=== PATIENT | female | born 1935 | race Caucasian/White ===

== ENCOUNTER 2016-09-24 15:55 | Inpatient (IN) ==
[2016-09-24 16:27] LABS: URINE MICRO REVIEW NEEDED? NO; URINE SOURCE CLEAN CATCH
[2016-09-24 16:34] LABS: BILIRUBIN URINE NEGATIVE (NEGATIVE); BLOOD URINE NEGATIVE (NEGATIVE); COLOR STRAW; GLUCOSE URINE NEGATIVE (NEGATIVE); LEUKOCYTES URINE MODERATE (NEGATIVE); NITRITE URINE NEGATIVE (NEGATIVE); PH URINE 6.5; PROTEIN URINE NEGATIVE (NEGATIVE); SP GRAVITY URINE 1.002; TURBIDITY URINE CLEAR (CLEAR); UROBILINOGEN URINE NORMAL (NORMAL)
[2016-09-24 16:34] LABS: HEMOGLOBIN 14.3 g/dL (12.0-16.0); MANUAL DIFF NEEDED? NO
[2016-09-24 16:36] LABS: UR EPITHELIAL CELLS <10 /HPF (<10); URINE BACTERIA NEGATIVE /HPF; URINE CULTURE NEEDED? YES; URINE RBC <10 /HPF (<10)
[2016-09-24 17:01] LABS: AGAP 15; ALBUMIN 4.4 g/dL (3.5-5.0); ALKALINE PHOSPHATASE 142 U/L (32-104); AMYLASE 59 U/L (20-200); BUN 19 mg/dL (8-22); CALCIUM 9.9 mg/dL (8.8-10.2); CHLORIDE 95 mmol/L (98-107); COSMO 277; GOT 56 U/L (10-30); GPT 29 U/L (10-36); LIPASE 55 U/L (13-60); POTASSIUM 3.7 mmol/L (3.5-5.1); SODIUM 137 mmol/L (136-145); TCO2 27 mmol/L (25-35); TOTAL PROTEIN 8.2 g/dL (6.3-8.3)
--- NOTE | 2016-09-24 17:04 | EKG Report ---
Test Performed on : 09/24/2016 4:12:00 PM Test Reason : ABDOMINA PIAN Blood Pressure : / mmHG Vent. Rate : 057 BPM Atrial Rate : 057 BPM P-R Int : 146 ms QRS Dur : 102 ms QT Int : 450 ms P-R-T Axes : 029 -11 076 degrees QTc Int : 438 ms Sinus bradycardia. Left ventricular hypertrophy with repolarization abnormality Anterior infarct (cited on or before 06-OCT-2015) Abnormal ECG When compared with ECG of 06-OCT-2015 03:16, fusion complexes are no longer present premature ventricular complexes. are no longer present Borderline criteria for Inferior infarct are no longer present Non-specific change in ST segment in Lateral leads T wave inversion less evident in Lateral leads Unconfirmed Result
[2016-09-24 17:48] LABS: BASO% 0.5 % (0.0-0.8); EOS% 1.8 % (0.0-10.0); HEMATOCRIT 43.9 % (37.0-47.0); IMM GRAN# 0.02 X1000 (0.0-0.04); IMM GRAN% 0.2 % (0.0-0.5); LYMPH# 2.59 X1000 (1.2-3.4); LYMPH% 23.4 % (20.5-51.1); MCH 29.3 PG (27-31); MCHC 32.6 g/dL (33-37); MONO# 0.77 X1000 (0.11-0.59); MONO% 6.9 % (1.7-9.3); MPV 11.9 FL (7.4-10.4); NEUT% 67.2 % (42.2-75.2); PLT 221 X1000 (130-400); RBC 4.88 XMIL (4.2-5.4)
--- NOTE | 2016-09-24 17:54 | ED EKG INTERP ---
This chart was entered by Batsheva Brower Scribrolf, acting as scribe for Lisa Darling MD. EKG Interpretation - EKG Time of EKG reading by physician:: 16:12 EKG Read and Signed by:: Lisa Darling EKG Interpretation (*Must complete 3 of following elements*): Abnormal (LVH with repolarization abnormality. anterior infarct, age undetermined.) Rate: 57 Rhythm: sinus bradycardia QRS: LVH (with repolarization abnormality) This chart was documented by the indicated scribe, (Batsheva Brower Scribe) and accurately reflects the services I performed and decisions made by me, Lisa Darling MD, as attested by the provider's signature.
[2016-09-24] MEDS ORDERED: NS 1,000 ML IV ONE (18:01)
--- NOTE | 2016-09-24 18:45 | PROVIDER DOCUMENTATION ---
This chart was entered by Batsheva Brower Scribe, acting as scribe for Dino Edmonds MD. HPI-Abdominal Pain/GI Problem - General Chief Complaint: Epigastric Pain Stated Complaint: UPPER ABD PAIN Time Seen by Provider: 09/24/16 17:31 Source: patient Allergies/Adverse Reactions: Patient Allergies Allergy/AdvReac Type Severity Reaction Status Date / Time ether [Ether] Allergy Unknown Verified 09/24/16 17:52 sulfamethoxazole Allergy RASH Verified 09/24/16 17:52 [From Bactrim] trimethoprim [From Bactrim] Allergy RASH Verified 09/24/16 17:52 morphine AdvReac AMS Verified 09/24/16 17:52 Home Medications: Home Medication List Medication Instructions Recorded Confirmed Last Taken Type Atenolol [Tenormin] 50 mg PO DAILY 08/07/12 09/24/16 09/24/16 History LISINOpril [Prinivil] 20 mg PO QHS 08/07/12 10/06/15 10/05/15 14:30 History Lutein [Natural Lutein] 20 mg PO DAILY 09/11/13 10/06/15 10/05/15 14:30 History Vitamin E 400 unit PO DAILY 09/11/13 10/06/15 10/05/15 14:30 History Meloxicam 7.5 mg PO DAILY 10/02/14 10/06/15 10/05/15 14:30 History Multivitamin with Minerals 1 each PO DAILY 10/02/14 10/06/15 10/05/15 14:30 History [Multiple Vitamin] Cholecalciferol (Vit D3) [Vitamin 1,000 unit PO DAILY 10/04/15 10/06/15 14:30 History D] Lisinopril [Zestril] 20 mg PO QHS #30 tablet 10/04/15 09/24/16 09/24/16 Rx Magnesium Oxide [Magnesium] 400 mg PO DAILY 10/04/15 10/06/15 10/05/15 14:30 History Clonidine HCl 0.1 mg PO TID PRN #30 tablet 10/06/15 Unknown Rx - History of Present Illness-ABD Nature of Presenting Problems: 80 yo WF presents to ED with cc of epigastric pain that is comparable to previous episodes of gallstones. Pt had a cholecystectomy but states she still gets gallstones, which Dr. Hubbard removes. Upon arrival to ED, pt is not currently in pain and appears in no distress. Abdominal Pain Onset Location: reports: epigastric Severity in ED: reports: mild Onset/Duration: reports: other (Off and on greater than 1 month) Timing: reports: intermittent (Pt not currently in pain.) Associated Symptoms: reports: denies symptoms Review of Systems - Adult - REVIEW OF SYSTEMS - ADULT Constitutional: reports: no symptoms reported. denies: chills, fever Eyes: reports: no symptoms reported. denies: blurred vision, double vision Ears, Nose, Mouth & Throat: reports: no symptoms reported. denies: ear pain, sinus problem Cardiovascular: reports: no symptoms reported. denies: chest pain, palpitations Respiratory: reports: no symptoms reported. denies: cough, wheezing Gastrointestinal: reports: abdominal pain (intermittent, epigastric) Genitourinary: reports: no symptoms reported. denies: dysuria, hesitency Musculoskeletal: reports: no symptoms reported. denies: back pain, joint swelling Integumentary: reports: no symptoms reported. denies: hair loss, mole changes Neurological: reports: no symptoms reported. denies: numbness, paresthesia Psychiatric: reports: no symptoms reported. denies: anxiety, depression Endocrine: reports: no symptoms reported. denies: cold intolerance, heat intolerance Hematologic/Lymphatic: reports: no symptoms reported. denies: blood clots, low blood count Allergic/Immunologic: reports: no symptoms reported. denies: allergic reactions , eczema All Other Systems: Reviewed and Negative Past History - Adult - PAST MEDICAL HISTORY-ADULT Review of Records: reports: Old Records Reviewed, Nursing Assessment Review, Medications Reviewed Major Childhood Illnesses: reports: denies history Cardiovascular: reports: HTN, hyperlipidemia Respiratory: reports: sleep apnea Gastrointestinal: reports: cholelithiasis, other (diverticulitis) Musculoskeletal: reports: arthritis - PRIOR SURGERIES/PROCEDURES Surgical/Procedure History: reports: appendectomy, cholecystectomy (in may), hysterectomy, orthopedic (extremity) (shoulder), joint replacement (LTKA, bilateral LUPE), back/neck - IMMUNIZATION STATUS Childhood Immunizations: See Nurse Assessment Flu Vaccine: See Nurse Assessment Physical Exam-General - PHYSICAL EXAM-ADULT Initial Vital Signs Reviewed: Yes - CONSTITUTIONAL General Appearance: appears well, alert, no apparent distress - EYES Eyes: PERRL/EOMI, pink conjunctivae - HEAD, EARS, NOSE, MOUTH & THROAT HENMT: normocephalic/atraumatic, moist mucous membranes - NECK Neck: non-tender, full range of motion, supple - RESPIRATORY Respiratory: chest non-tender, lungs clear, normal breath sounds - CARDIOVASCULAR Cardiovascular: normal peripheral pulses, bradycardia - GASTROINTESTINAL (ABDOMEN) Abdominal Exam: normal bowel sounds, non tender, soft - LYMPHATIC Lymphatic: no adenopathy - MUSCULOSKELETAL Back Exam: normal inspection Extremity: normal range of motion, non-tender, normal gait - SKIN Integumentary: normal color, normal turgor - NEUROLOGIC Neurologic: grossly normal, no motor/sensory deficits - PSYCHIATRIC Psych/Mental Status: normal mood/affect, normal thought content, normal thought process, oriented x 3 Progress - PLAN OF CARE/RESULTS Progress/Plan/Lab Results: Vital Signs - 8 hr 09/24/16 16:00 Temperature 98.2 F Pulse Rate 57 L Respiratory Rate 20 Blood Pressure 207/70 O2 Sat by Pulse Oximetry 100 Laboratory Results - last 24 hr 09/24/16 09/24/16 09/24/16 16:05 16:08 16:10 WBC 11.09 H RBC 4.88 Hgb 14.3 Hct 43.9 MCV 90.0 MCH 29.3 MCHC 32.6 L RDW Std Deviation 13.2 Plt Count 221 MPV 11.9 H Immature Gran % (Auto) 0.2 Neut % (Auto) 67.2 Lymph % (Auto) 23.4 Davison % (Auto) 6.9 Eos % (Auto) 1.8 Baso % (Auto) 0.5 Immature Gran # (Auto) 0.02 Neut # (Auto) 7.46 H Lymph # (Auto) 2.59 Davison # (Auto) 0.77 H Eos # (Auto) 0.20 Baso # (Auto) 0.05 Sodium 137 Potassium 3.7 Chloride 95 L Carbon Dioxide 27 Anion Gap 15 BUN 19 Creatinine 0.8 Estimated GFR/1.73 m2 > 60 BUN/Creatinine Ratio 24 Glucose 115 H Calculated Osmolality 277 Calcium 9.9 Total Bilirubin 0.50 AST 56 H ALT 29 Alkaline Phosphatase 142 H Total Protein 8.2 Albumin 4.4 Globulin 3.8 Albumin/Globulin Ratio 1.2 Amylase 59 Lipase 55 Urine Source CLEAN CATCH Urine Color STRAW Urine Turbidity CLEAR Urine pH 6.5 Ur Specific Mayo 1.002 Urine Protein NEGATIVE Ur Glucose (Stick) NEGATIVE Ur Ketones (Stick) NEGATIVE Urine Blood NEGATIVE Urine Nitrite NEGATIVE Urine Bilirubin NEGATIVE Urobilinogen Dipstick NORMAL Urine Leukocytes MODERATE A Urine WBC (Auto) 10-20 A Urine RBC (Auto) <10 U Epithel Cells (Auto) <10 Urine Bacteria (Auto) NEGATIVE Orders Category Date Time Status Saline Loc DIRECTED Care 09/24/16 16:06 Active NPO Diet 09/24/16 16:06 Active AMYLASE [CHEM] Stat Lab 09/24/16 16:08 Completed CBC WITH ELECTRONIC DIFF [HEME] Stat Lab 09/24/16 16:05 Completed COMPREHENSIVE METABOLIC PANEL [CHEM] Stat Lab 09/24/16 16:08 Completed LIPASE [CHEM] Stat Lab 09/24/16 16:08 Completed URINALYSIS W/POSS RFLX CULT-1 [URINALYSIS] Stat Lab 09/24/16 16:10 Completed EKG [EKG] Stat Ther 09/24/16 16:07 Draft Result Diagrams: 09/24/16 16:05 09/24/16 16:08 - REASSESSMENT Reassessment #1 Time Reassessed: 18:44 Status: improving (asymptomatic now) Departure - Departure Time of Disposition Decision: 18:43 DIAGNOSIS: Gall stones, common bile duct Disposition: ADMITTED INPATIENT 09 Certified Medical Emergency: Emergent Condition: Stable Referrals and Follow-Ups: Juan Manuel Kincaid MD [Primary Care Provider] - - Critical Care Note This patient required my direct & personal management of CC.: No This chart was documented by the indicated scribe, (Batsheva Brower Scribrolf) and accurately reflects the services I performed and decisions made by me, Dino Edmonds MD, as attested by the provider's signature.
[2016-09-24] MEDS ORDERED: ZOFRAN IV PRN (19:00)
[2016-09-24] MEDS ORDERED: LABETALOL IV ONE (19:37)
--- NOTE | 2016-09-24 20:54 | HISTORY AND PHYSICAL ---
PRIMARY CARE PHYSICIAN: Juan Manuel Kincaid MD. SENIOR ECONOMIST: Jeffry Santacruz MD. PRESENTING COMPLAINT: Abdominal pain. HISTORY OF PRESENTING COMPLAINT: Ms. Chou is an 80-year-old, female with extensive history of hypertension, dyslipidemia, sleep apnea, GERD. The patient also has multiple stones in the CBD even after gallbladder has been taken out. She has had multiple ERCPs with stent placement and removal of stones. She referred that the last time an ERCP was done was March of last year. Since then she has been pretty stable. She gets every now and then abdominal pain but then she lies down and it goes away. However, this morning she said she experienced the worst pain of her life. It was intense in the midepigastrium radiating all the way to the right quadrant and also up in the chest. The patient refers that there was no vomiting, no diarrhea. She felt it is the same type of pain that she normally gets when her CBD is obstructed. Upon presentation to the emergency department patient was evaluated but by the time I saw her she was pain-free. PAST MEDICAL HISTORY: 1. Hypertension. 2. Dyslipidemia. 3. Sleep apnea. PAST SURGICAL HISTORY: 1. Bilateral hip replacement. 2. Total knee. 3. Cholecystectomy. SOCIAL HISTORY: Patient denies alcohol or illicit drugs. Lives alone. ALLERGIES: Bactrim and morphine. REVIEW OF SYSTEMS: A 14 point review of systems was discussed with the patient. Unremarkable except for what is noted in HPI. Specifically, patient denies any nausea or vomiting. No diarrhea. No shortness of breath. No fever. No chills. PHYSICAL EXAMINATION: VITAL SIGNS: Blood pressure is 192/62, pulse is 52, respirations 20, temperature 98.2 degrees. GENERAL: Ms. Chou is an 80-year-old female. She is in bed, not in any distress. HEENT: Mucosa is slightly dry. Anicteric. Acyanotic. NECK: Supple. HEAD: Normocephalic, atraumatic. NECK: Supple. No JVD. CHEST: Good air entry bilaterally. No crepitations. No rhonchi. CARDIOVASCULAR: Regular rate and rhythm. There are no murmurs, rubs, or gallops. ABDOMEN: Soft. It is completely unremarkable now. Bowel sounds are present. No hepatosplenomegaly. EXTREMITIES: No pedal edema. CENTRAL NERVOUS SYSTEM: Patient is alert, oriented x4. Executive functions are intact. She has a very good sense of humor. Follows commands. Power is 5/5 in all extremities. There is no sensory deficit. Cranial nerves 2-12 have been grossly examined and they are intact. LABORATORY DATA: WBC is 11.09, hemoglobin is 14.3, platelet count is 221,000. Chemistry: Sodium is 137, potassium is 3.7, chloride is 95, bicarbonate 27, glucose is 115. AST is 56, ALT is 26, alkaline phosphatase is 142. Urine shows moderate leukocytes, WBC is 10-20, but patient is completely asymptomatic. ASSESSMENT: Ms. Chou is an 80-year-old, female, with recurrent abdominal pain subsequent to common bile duct stones. 1. Abdominal pain likely secondary to stones in the CBD. The patient is now completely asymptomatic. We will do an ultrasound of the right upper quadrant and notify her GI physician for tomorrow. 2. Clinical dehydration. We will continue with gentle hydration for now. 3. Mild urine leukocyte. I think this is probably asymptomatic bacteriuria. Patient does not have any urinary tract infection symptoms. I will therefore not treat that. 4. Uncontrolled hypertension. We will restart the patient on her home blood pressure medications including lisinopril, clonidine and atenolol. We will withhold meloxicam which is a pain medication that patient is on which we know can affect blood pressure. 5. We will keep a very close eye on her liver function tests. If tomorrow GI reviews the patient and they do not think there is a need for any procedure and she is well-hydrated, then I think we can discharge her. cc: Tian Maier MD
[2016-09-24] MEDS: PRINIVIL PO SCH (21:46)
[2016-09-24] MEDS: NS 1,000 ML IV SCH (21:46)
[2016-09-25 05:06] LABS: MANUAL DIFF NEEDED? NO
[2016-09-25 05:21] LABS: BASO% 0.3 % (0.0-0.8); EOS# 0.24 X1000 (0.0-0.7); EOS% 2.7 % (0.0-10.0); HEMATOCRIT 36.6 % (37.0-47.0); HEMOGLOBIN 11.9 g/dL (12.0-16.0); LYMPH% 33.9 % (20.5-51.1); MCHC 32.5 g/dL (33-37); MCV 89.3 FL (81-99); MONO# 0.69 X1000 (0.11-0.59); MONO% 7.8 % (1.7-9.3); MPV 11.2 FL (7.4-10.4); NEUT% 55.3 % (42.2-75.2); PLT 168 X1000 (130-400)
[2016-09-25 05:29] LABS: AGAP 13; ALBUMIN 3.6 g/dL (3.5-5.0); ALKALINE PHOSPHATASE 111 U/L (32-104); BUN 14 mg/dL (8-22); CALCIUM 8.7 mg/dL (8.8-10.2); CHLORIDE 104 mmol/L (98-107); COSMO 285; GOT 28 U/L (10-30); GPT 20 U/L (10-36); MAGNESIUM 1.7 mg/dL (1.5-2.7); POTASSIUM 3.4 mmol/L (3.5-5.1); SODIUM 143 mmol/L (136-145); TCO2 26 mmol/L (25-35); TOTAL BILIRUBIN 0.39 mg/dL (0.20-1.00); TOTAL PROTEIN 6.5 g/dL (6.3-8.3)
[2016-09-25 05:36] LABS: INR 1.01; PROTIME 10.6 Seconds (9.2-11.7)
[2016-09-25] MEDS: NS 1,000 ML IV SCH (06:16)
--- NOTE | 2016-09-25 10:17 | Diag Imaging Result Doc PS360 ---
US ABDOMEN-COMPLETE - 09/25/2016 INDICATION: no GB, but has recurrent stones COMPARISON: CT abdomen pelvis 01/29/2015 FINDINGS: The gallbladder is surgically absent. The common bile duct is normal measuring 6 mm. No biliary dilation. The liver, pancreas, spleen, and right kidney are normal. There is a left renal cyst measuring 1.2 cm. Aorta, IVC, and main portal vein are patent. Spleen size is about 10 cm. IMPRESSION: No acute disease. Electronically signed by Isaias Cunningham 09/25/2016 10:14 AM
[2016-09-25] MEDS: TENORMIN PO SCH (10:58)
[2016-09-25] MEDS ORDERED: LIBRAX PO PRN (12:19)
--- NOTE | 2016-09-25 13:19 | CONSULTATION ---
DATE OF CONSULTATION: 09/25/2016 REASON FOR REFERRAL: Abdominal pain, history of common bile duct stones. HISTORY OF PRESENT ILLNESS: This is an 80-year-old, white female, who reports onset of symptoms yesterday. She describes abdominal pain as "attacks". She reports abdominal pain that usually improves after lying down but, yesterday, it did not improve and she reported to the emergency room. Her daughter was actually in our office yesterday for an appointment and had told us that her mother had been having some episodes of abdominal pain similar to the episodes she has had when she had common bile duct stones. She has had several ERCPs in 2014 for stone removals and stent placements. The last procedure was done in 03/2015 where she had a stone removed and her stent removed. The patient states since 06/2016 she has had episodes of abdominal pain off and on. Usually her symptoms improve after lying down for about 5 or 10 minutes. Yesterday, she states that the attack was the worst one she has had and her symptoms did not improve, so she reported to the emergency room. Today, she denies abdominal pain, and her symptoms have resolved. No reported nausea or vomiting with this episode of pain. Her daughter states she has complained of nausea with episodes of vomiting in the past. She denies constipation or diarrhea. She does report some belching but denies reflux or heartburn. On evaluation, her AST was slightly elevated at 56; today, it is 28. Her alkaline phosphatase on admission was 142; today, it is 111. She had an abdominal ultrasound with no evidence of common bile duct stone. No biliary dilation noted. PAST MEDICAL HISTORY: Hypertension, dyslipidemia, sleep apnea, GERD. PAST SURGICAL HISTORY: Bilateral hip replacement, total knee replacement, cholecystectomy, history of ERCP with stone extractions and stent placements with last procedure being in 03/2015 with stone removed and stent removed. SOCIAL HISTORY: She denies alcohol use or tobacco use. She lives alone. ALLERGIES: Bactrim causing a rash. Morphine causing altered mental status, and ether causing an unknown reaction. HOME MEDICATIONS: 1. Vitamin E 400 units daily. 2. Multivitamin daily. 3. Meloxicam 7.5 mg daily. 4. Magnesium 400 mg daily. 5. Lutein 20 mg daily. 6. Zestril 20 mg every night. 7. Prinivil 20 mg every night. 8. Clonidine 0.1 mg 3 times a day as needed. 9. Vitamin D 1000 units daily. 10. Tenormin 50 mg daily. REVIEW OF SYSTEMS: Per HPI. PHYSICAL EXAMINATION: Vital Signs: Temperature 98.6 degrees, pulse 62, respirations 16, blood pressure 186/70. Generally, the patient is awake, alert, no acute distress. HEENT: Normocephalic, atraumatic. Pupils equal, round, reactive to light. Sclerae nonicteric. Cardiovascular: Regular rate and rhythm. Respiratory: Lung sounds clear bilaterally. Abdomen is soft, nontender. Positive bowel sounds. Extremities: No lower extremity edema noted. Neurological: Cranial nerves 2-12 grossly intact. Patient is awake, alert, oriented to person, place, and time. DIAGNOSTIC RESULTS: Laboratory: Hematology: White count 8.85, hemoglobin 11.9 , hematocrit 36.6, MCV 89.3. Chemistry: Sodium 143, potassium 3.4, chloride 104, CO2 of 26. BUN 14, creatinine 0.8, total bilirubin 0.39, AST 28, ALT 20, alkaline phosphatase 111. Amylase 59 , lipase 55. Abdominal ultrasound showing no evidence of acute disease. Common bile duct was normal measuring 6 mm with no biliary dilation noted. No reported common bile duct stones noted. ASSESSMENT AND PLAN: 1. Abdominal pain, now resolved. 2. Mildly elevated LFTs. 3. Hypertension. PLAN: We will continue supportive care and symptomatic treatment. Use Librax as needed for abdominal pain. We will empirically start Cipro 250 mg twice a day for 5 days. Case discussed with Dr. Santacruz. He does not recommend an ERCP at this time since her symptoms have resolved. We will repeat LFTs in the morning. Continue to follow, and we will see her in the office once discharged. I have discussed this case with Dr. Santacruz. He is telephone station repairer over the weekend and will be available as needed. Thank you for this consultation. Dictated by XIAO Gutierrez for Jeffry Santacruz MD cc: XIAO Witt MD [facility]
[2016-09-25] MEDS: CIPRO PO SCH ×2 (14:07→21:46)
--- NOTE | 2016-09-25 15:21 | PROGRESS NOTE ---
DATE: 09/25/2016 Ms. Chou presented on 09/24/2016. She is an 80-year-old female with extensive history of hypertension, dyslipidemia, sleep apnea, gastroesophageal reflux disease. She had multiple stones in the common bile duct and I think she told me she has had 3 different times after her gallbladder was taken. Following her cholecystectomy she has had 3 stones removed, ERCPs. Dr. Santacruz has followed her but she has more abdominal pain and presented to the hospital. On exam today, epigastric pain is less but she complains of some pain that starts around the epigastric area and migrates outward. She had mild elevation of LFTs. They are using some Librax as needed for abdominal pain. Abdominal ultrasound done on 09/25/2016, no acute disease. ASSESSMENT AND PLAN: 1. Abdominal pain likely secondary stones common bile duct. Patient on admission was completely asymptomatic but has had some more bouts of discomfort, right upper quadrant, epigastric. 2. Clinical dehydration. Hydrate with IV fluids. 3. Mild urine leukocytes so treating with an asymptomatic bacteriuria. Does not have any real urinary tract infection symptoms. 4. Uncontrolled hypertension. Blood pressures continue to monitor. So we will see. Continue present orders. cc: Liang Pinzon MD
[2016-09-25] MEDS: DILAUDID IV PRN (17:07)
[2016-09-25] MEDS: LABETALOL IV PRN (19:45)
[2016-09-25] MEDS: PRINIVIL PO SCH (21:46)
[2016-09-26] MEDS: NS 1,000 ML IV SCH (01:25)
[2016-09-26] MEDS: DILAUDID IV PRN (01:26)
[2016-09-26 06:45] LABS: ALBUMIN 3.3 g/dL (3.5-5.0); ALKALINE PHOSPHATASE 100 U/L (32-104); DIRECT BILIRUBIN < 0.20 mg/dL (0.00-0.20); GOT 23 U/L (10-30); GPT 16 U/L (10-36); TOTAL PROTEIN 5.7 g/dL (6.3-8.3)
[2016-09-26] MEDS: CIPRO PO SCH ×2 (10:33→21:01)
[2016-09-26] MEDS: TENORMIN PO SCH (10:33)
[2016-09-26] MEDS: LABETALOL IV PRN ×2 (13:12→23:44)
--- NOTE | 2016-09-26 14:49 | CONSULTATION ---
DATE OF CONSULTATION: 09/26/2016 INDICATION: Hypertension. HISTORY OF PRESENT ILLNESS: Ms. Chou is an 80-year-old, white female with a history of hypertension, dyslipidemia and sleep apnea. In addition, she has reflux disease and a history of multiple stones in the common bile duct even after cholecystectomy has been performed. She has had multiple ERCPs with stent placements and removal of stones performed. She presented for a similar abdominal pain that she had with biliary stones. This has since resolved since she has presented. She has not had any vomiting. No diarrhea. She has not had any exertional chest pain. She also reports that recently her blood pressure has been much more elevated. It is unclear as to when this onset of symptoms started. She had a titration of her medications by her primary care physician in June but she never followed up regarding this and it does not sound like she has been checking it at home fairly regularly. In this hospitalization she has had significant elevations with adjustment of medications by the primary team. PAST MEDICAL HISTORY: 1. Hypertension. 2. Dyslipidemia. 3. Sleep apnea. 4. History of biliary stones. SOCIAL HISTORY: No alcohol or illicit drugs. FAMILY HISTORY: Significant for hypertension. REVIEW OF SYSTEMS: A 10 system review of systems is negative except for those things mentioned in HPI. PHYSICAL EXAMINATION: She is afebrile. Heart rate is in the 50s to 60s. Her blood pressures have been quite elevated during this hospitalization ranging anywhere from the 160s to 210s systolic. Repetition of her blood pressure checked by myself in both upper extremities show systolics in the 180s to 200s bilaterally.General: She is in no acute distress. She has no pain issues presently. HEENT: Oropharynx is moist. Poor dentition. Eye examination shows pink conjunctivae, white sclerae. Neck: Examination shows no obvious thyromegaly or thyroid tenderness. Cardiovascular: She is in a regular rate and rhythm. She has no murmurs. She has no S3. She has no lower extremity edema. Chest: Clear bilaterally. She has no increased work of breathing. Abdomen: Soft. There is minimal diffuse tenderness to palpation with no rebound or guarding. Good bowel sounds. Skin Exam: Warm and dry throughout without any rashes. Neurological: Moving all extremities well. Cranial nerves 2-12 are intact without any sensation deficits. Psychiatric: Alert, oriented, pleasant. She has normal mood and affect. PERTINENT DATA: She had abdominal ultrasound that shows no evidence of any acute disease. Common bile duct was normal. She had an electrocardiogram on the demonstrating sinus rhythm. She has really no evidence of any significant ischemic changes. No signs of infarct. Her laboratory data shows white count 8.8 yesterday, hematocrit 36.6, platelet count is 168,000. Sodium is 143, potassium 3.4. Her BUN is 14, creatinine 0.8. Cardiac enzymes negative. Albumin 3.3. ASSESSMENT: Refractory hypertension. PLAN: We will check a duplex renal artery Doppler. Medication adjustments have been already made by the primary team including the addition of a diuretic which will start tomorrow as well as amlodipine 5 mg b.i.d. which will start tonight. She is on lisinopril 20 mg at bedtime as well as atenolol 50 mg daily. We will follow up on the duplex renal artery Doppler. Further recommendations to follow. cc: Macho Zamora MD
--- NOTE | 2016-09-26 16:26 | PROGRESS NOTE ---
DATE: 09/26/2016 Today Ms. Chou refers to be doing a whole lot better. Abdominal pain is completely gone. She denies any nausea. No chest pain. No diarrhea. OBJECTIVE: Vital signs: Blood pressure is 187/72, pulse of 60, respirations 17 , temperature is 98 degrees. General: Ms. Chou is an 80-year-old female. She is in bed. HEENT: Mucosa is slightly dry. Anicteric. Acyanotic. Neck: Supple. Chest: Good air entry bilaterally. No crepitations. No rhonchi. Cardiovascular: Regular rate and rhythm. Abdomen: Soft. Extremities: No pedal edema. CAREER SERVICES ASSISTANT: Patient is alert and oriented. There is no focal neurological deficit. LABORATORY DATA: Liver function tests, total bilirubin 0.4. AST is 23, ALT is 16, alkaline phosphatase is 100. ASSESSMENT: 1. Abdominal pain. Suspected to be due to stones in the CBD. This has completely resolved. Patient has been evaluated by Dr. Santacruz and he does not think there is any need for any GI intervention at this point. 2. Clinical dehydration. This has also improved. Patient has been on IV fluids. Has been advised to adequately hydrate herself. 3. Uncontrolled hypertension. Blood pressure on presentation was 207/70. This has progressively coming down and this morning is 187/72. Of note, patient has no signs and symptoms of end organ damage. There are not any heart problems at this point. Patient is not encephalopathic. Does not have any renal disease and there is not any indication of vascular acute disease due to the elevated blood pressure. I think the blood pressure needs to be better controlled and she does not necessarily need to be in hospital for this to be done. I have added amlodipine and chlorthalidone to her ROSEMARY inhibitor and beta vi for better blood pressure control which I think needs to be done very slowly because of her age so that we do not drop the cerebral perfusion which in turn can actually have worst consequences than the cure. I did try to explain this to the daughter but she was very adamant that she wants her mother's blood pressure better well controlled in the hospital before she would take her home. There was a point that she said she would jennifer me if her mother goes home and gets stroke because of elevated blood pressure. I did mention to her I cannot guess what is going to happen the next day or the next second but I know for sure there is no any indication to drop her blood pressure to normal level while she is in hospital acutely since the consequence is detrimental. 4. History of sleep apnea. Noted. 5. Multiple CBD interventions with ERCPs noted. So in general I think from a medical standpoint, Ms. Chou is stable to be discharged. She does have elevated blood pressure which I think needs to be better controlled, not necessarily in the hospital setting. We will consult Cardiology upon the request of the daughter to evaluate the patient. As I said, I have already added amlodipine and chlorthalidone to her home medications and we will be waiting on final recommendations from Cardiology to discharge her. cc: Tian Maier MD MTDLi
--- NOTE | 2016-09-26 17:53 | Diag Imaging Result Doc PS360 ---
EXAM: DUPLEX RENAL ARTY OR VEIN LMTD HISTORY: newly uncontrolled HTN TECHNIQUE: Transabdominal COMMENT: The study is suboptimal due to poor sonographic window body habitus and bowel gas. Right kidney is 10.1 x 4.8 x 4.4 cm the left is 10 x 4.6 x 5.5 cm. There is no evidence of hydronephrosis. There is what appears to be a 1.3 cm cyst in the lower pole of the left kidney. The resistive index on the right is 0.75 and the renal artery ratio is 0.37. This is within the normal range. The resistive index on the left is 0.7 and the renal artery ratio is 1.2 which is also within the normal range. IMPRESSION: Suboptimal study. No evidence of renal artery stenosis. Left renal cyst. Electronically signed by Brian Corrales 09/26/2016 5:51 PM
[2016-09-26] MEDS ORDERED: CARDIZEM 100 MG/NS 100 MG/100 ML IVPB IV SCH (20:25)
[2016-09-26] MEDS: NORVASC PO SCH (21:01)
[2016-09-26] MEDS: PRINIVIL PO SCH (21:01)
[2016-09-27] MEDS: LABETALOL IV PRN ×2 (05:10→08:12)
[2016-09-27] MEDS: HYGROTON PO SCH (09:05)
[2016-09-27] MEDS: NORVASC PO SCH (09:06)
[2016-09-27] MEDS: TENORMIN PO SCH (09:06)
[2016-09-27] MEDS: CIPRO PO SCH ×2 (09:06→21:05)
--- NOTE | 2016-09-27 16:01 | PROGRESS NOTE ---
DATE: 09/27/2016 SUBJECTIVE: She has not had any issues overnight other than some mild issues with headache. No chest pain. PHYSICAL EXAMINATION: Vital signs: She is afebrile. Heart rate is 64. Her blood pressure continues to be quite elevated with many systolics in the 180s to 200s. General: No acute distress. Cardiovascular: She is in a regular rate and rhythm. She has no obvious murmurs. No S3. She has no lower extremity edema. Chest: Clear bilaterally. No increased work of breathing. Abdomen: Soft, nontender, nondistended. No obvious organomegaly. PERTINENT DATA: Her renal artery Doppler demonstrated no evidence of significant renal artery stenosis. She has no new labs from today. ASSESSMENT: Hypertension. PLAN: Patient has significant hypertension. I have increased her lisinopril to 20 mg b.i.d. I have stopped her atenolol and place her on Coreg 6.25 b.i.d. In review of blood pressure logs from September of 2015, she has had significant bouts of hypertension even back then. I do not believe the blood pressure issues she is currently having are new and have been present for at least a year or more. I would continue to adjust medications presently. Her potassium does not suggest an issue with aldosterone. cc: Macho Zamora MD
--- NOTE | 2016-09-27 18:26 | PROGRESS NOTE ---
DATE: 09/27/2016 SUBJECTIVE: Today Ms. Chou refers to be doing okay, did not actually have any acute complaints. According to her, her blood pressure is up and down and that is concerning to her. OBJECTIVE: Vital signs: Blood pressure is 215/70. A recheck later on this morning was 148/72. General: Ms. Chou is an 80-year-old female. She was sitting up in the chair. No distress. HEENT: Mucous is pink and moist. Anicteric. Acyanotic. Neck: Supple. Chest: Clear. Cardiovascular: Regular rate and rhythm. Abdomen: Soft, nontender. Extremities: No pedal edema. WHIRLEY OPERATOR: Patient was alert and oriented x4. There is no focal neurological deficit. LABS: There is no any lab work for today. ASSESSMENT: 1. Abdominal pain suspected to be common bile duct stones. This is resolved. 2. Clinical dehydration on presentation has improved. 3. Uncontrolled systolic hypertension. Patient was started on chlorthalidone, amlodipine on top of her atenolol and the lisinopril. We would continue to observe her blood pressure and make changes accordingly. Cardiology is now on board. 4. History of sleep apnea noted. 5. Multiple common bile duct interventions with ERCP noted. 6. History of vitamin D deficiency. Patient is on cholecalciferol, will restart her on that. cc: Tian Maier MD MTDD
[2016-09-27] MEDS: COREG PO SCH (21:05)
[2016-09-27] MEDS: PRINIVIL PO SCH (21:05)
--- NOTE | 2016-09-28 05:49 | EKG Report ---
Test Performed on : 09/26/2016 2:58:33 PM Test Reason : abdominal pain Blood Pressure : / mmHG Vent. Rate : 064 BPM Atrial Rate : 064 BPM P-R Int : 178 ms QRS Dur : 104 ms QT Int : 428 ms P-R-T Axes : 061 -18 087 degrees QTc Int : 441 ms Normal sinus rhythm. Left ventricular hypertrophy with repolarization abnormality Abnormal ECG When compared with ECG of 24-SEP-2016 16:12, No significant change was found Confirmed by Cristo Herbert MD ([id number]) on 09/28/2016 10:55:22 AM
[2016-09-28 07:00] LABS: AGAP 11; BUN 11 mg/dL (8-22); CALCIUM 8.9 mg/dL (8.8-10.2); CHLORIDE 104 mmol/L (98-107); COSMO 284; POTASSIUM 4.4 mmol/L (3.5-5.1); SODIUM 143 mmol/L (136-145); TCO2 28 mmol/L (25-35)
[2016-09-28] MEDS: CIPRO PO SCH (09:19)
[2016-09-28] MEDS: PRINIVIL PO SCH (09:19)
[2016-09-28] MEDS: COREG PO SCH (09:19)
[2016-09-28] MEDS: APRESOLINE PO SCH ×3 (09:19→17:40)
[2016-09-28] MEDS: HYGROTON PO SCH (09:19)
--- NOTE | 2016-09-28 10:25 | PROGRESS NOTE ---
DATE: 09/28/2016 SUBJECTIVE: Today, Ms. Chou refers to be doing better. She says she feels better because her blood pressures are going down. She denies any symptoms at this point. No chest pain. No shortness of breath. No visual changes. No chest pain. Yesterday, I was told that she was having some facial swelling and some ankle swelling, which I thought was related to the amlodipine, so we discontinued that and started her on hydralazine. OBJECTIVE: Vital Signs: Blood pressure is 187/78, pulse of 52, respiration is 18, temperature is 98.2 degrees. General: Ms. Chou is an 80-year-old female. She was in bed. No distress. HEENT: Mucosa is pink and moist. Anicteric. Acyanotic. Neck supple. Chest clear. Cardiovascular: Regular rate and rhythm. Abdomen is soft. Extremities: No pedal edema. STRATEGIC ADVISOR: The patient is awake, alert, oriented x4. There is no focal neurological deficit. LABORATORY DATA: Chemistry is completely normal. ASSESSMENT: 1. Abdominal pain suspected to be common bile duct stones. This has completely resolved. The patient was evaluated by the visitor services representative, and they are okay for the patient to be discharged and follow up with them. 2. Clinical dehydration on presentation, improved. 3. Uncontrolled systolic hypertension. The patient is currently on lisinopril 20 b.i.d. Carvedilol was started yesterday and atenolol was discontinued. Amlodipine was also started about 2 days ago; however, there was a concern of swelling in the face and ankles, so we discontinued that and started the patient on hydralazine. Chlorthalidone is also on board. The patient's blood pressure is still on the higher end, but as I dictated before, I do not think the patient needs to be in hospital for complete resolution of her blood pressure. We are, therefore, going to discharge her if it is okay with cardiology and follow up with them on an outpatient basis and also with Dr. Santacruz for the abdominal discomfort. 4. Vitamin D deficiency. We will continue to replace. We will go ahead and discharge Ms. Chou today if it is okay with cardiology. cc: Tian Maier MD
--- NOTE | 2016-09-28 12:14 | PROGRESS NOTE ---
DATE: 09/28/2016 SUBJECTIVE: Patient states she is feeling better. She denies abdominal pain. They have been treating her blood pressure which has been elevated. She states she is going home today. OBJECTIVE: Vital Signs: Temperature 98.2 degrees, pulse 57, respirations 18, blood pressure 181/60. General: Patient is awake, alert, no acute distress. HEENT: Normocephalic, atraumatic. Pupils equal, round, reactive to light. Sclerae nonicteric. Abdomen: Soft, nontender. Positive bowel sounds. LABORATORY: Hematology: White count 8.85, hemoglobin 11.9, hematocrit 36.6, MCV 89.3, platelet 168,000. Chemistry: Sodium 143, potassium 4.4, chloride 104, CO2 28, BUN 11, creatinine 0.8, glucose 88. ASSESSMENT AND PLAN: 1. Abdominal pain has resolved. Her LFTs have gone back to normal. 2. Uncontrolled hypertension. Her blood pressure medicines have been adjusted. The patient has discharge orders. Instructed her to follow up with us in our office in 2-3 weeks. I instructed her to call back sooner if she has another episode of abdominal pain and further workup will be made as needed. Patient voices understanding. Dictated by XIAO Gutierrez for Jeffry Santacruz MD cc: XIAO Witt MD
[2016-09-28 16:19] VITALS: BP 149/72
--- NOTE | 2016-09-29 10:12 | DISCHARGE SUMMARY ---
ADMISSION DATE: 09/24/2016 DISCHARGE DATE: 09/28/2016 CONSULTATIONS: 1. Dr. Santacruz with gastroenterology. 2. Dr. Macho Zamora with cardiology. PERTINENT PROCEDURES: Abdominal ultrasound showed no acute disease. Aortorenal ultrasound was a suboptimal study. No evidence of renal artery stenosis. Left renal cyst. DISCHARGE DIAGNOSES: 1. Abdominal pain, suspected to be common bile duct stone, resolved. Follow up with gastroenterology. 2. Clinical dehydration, improved. 3. Uncontrolled systolic hypertension. The patient is currently on lisinopril 20 twice a day and carvedilol was started. Atenolol was discontinued as well as continued on amlodipine but there was concern of swelling in the face in the ankles so the amlodipine was discontinued and the patient was started on hydralazine. Improving. Continue to follow up with cardiology. 4. Vitamin D deficiency. Continue with supplementation. HOSPITAL COURSE: Mr. 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 Her last ERCP was in March of last year. Since then, she had been pretty stable. She does get occasional abdominal pain but then she will lie down and it will go away. However, on the morning of her admission, she experienced the worst pain of her life. It was intense, in the mid epigastrium, radiating all the way to the right quadrant and up into the chest. No vomiting. No diarrhea. She stated that this was the same type of pain that she normally gets when her CBD is obstructed. Abdominal ultrasound was completed that showed no acute disease. There was no biliary dilatation. Common bile duct was measuring normal at [address] Santacruz with gastroenterology was consulted. They agreed with supportive care and symptomatic treatment, and empirically started Cipro 250 mg twice a day for [address] Santacruz did not recommend an ERCP at this time and to follow up with them on an outpatient basis after discharge. The patient's abdominal pain did completely resolve. The patient did have some uncontrolled hypertension. Blood pressure was 207/70. Patient never did become encephalopathic. Amlodipine and chlorthalidone was added as well as continued beta-vi to help better control her blood pressure. We did bring cardiology on board at the request of the patient's daughter. I did do an aortorenal ultrasound that showed no evidence of renal artery stenosis. Her lisinopril was increased to 20 mg b.i.d. Her atenolol was stopped and placed on Coreg 6.25 b.i.d. The patient did have some possible face swelling as well as ankle swelling so her amlodipine was discontinued. The patient was watched carefully. The patient's blood pressure has somewhat improved. She will follow up with cardiology on an outpatient basis as well as gastroenterology. The patient is being discharged home today. VITAL SIGNS: Temperature is 97.6 degrees, heart rate 60, respirations 18, blood pressure 173/66, O2 is 97% on room air. DISCHARGE DIET: Healthy heart. DISCHARGE MEDICATIONS: 1. Coreg 12.5 mg p.o. b.i.d. 2. chlorthalidone 12.5 mg p.o. daily. 3. Vitamin D3 1000 units p.o. daily. 4. Cipro 250 mg p.o. b.i.d. 5. Apresoline 25 mg p.o. t.i.d. 6. Prinivil 20 mg p.o. b.i.d. 7. Natural lutein 20 mg p.o. daily. 8. Multivitamin 1 each p.o. daily. 9. Vitamin E 400 units p.o. daily. FOLLOWUP: The patient is being discharged home. She will need to follow up with Dr. Santacruz as well as Dr. Macho Zamora in 2 weeks. The patient is to return to the ED for any worsening of symptoms. Discharge time, 30 minutes. Dictated by XIAO Sharp for Tian Maier MD cc: MD MANN Ndiaye
--- NOTE | 2016-09-29 11:38 | Carotid Study ---
DATE: 09/25/2016 PROCEDURE: Bilateral duplex and color flow imaging of the carotid arteries performed using the [employer] Vivid E9 ultrasound system with a 9L-D transducer. REFERRING PHYSICIAN: Tian Maier MD. INTERPRETING PHYSICIAN: Florina Gates MD. TECH: Linda Echeverria Coleman. INDICATIONS: Dizziness, vertigo, ICD-10 R42. OBSERVED DATA RIGHT LEFT Brachial Blood Pressure Carotid Pulse Bruits: Carotid/Sub DIAGRAM OF ULTRASOUND IMAGING R L RIGHT INT EXT INT EXT LEFT Jhon (cm/s) Jhon (cm/s) Subclavian 70/0 Subclavian 76/0 CCA Proximal 80/9 CCA Proximal 80/12 CCA Distal 65/11 CCA Distal 39/7 Bulb 36/10 Bulb 32/7 ICA Proximal 39/8 ICA Proximal 31/8 ICA Mid 43/12 ICA Mid 41/14 ICA Distal 44/14 ICA Distal 43/15 ECA 63/8 ECA 59/4 Vertebral 54/16 Vertebral 42/13 ICA/CCA Ratio 0.55 ICA/CCA Ratio 0.54 % Stenosis 0-39 % Stenosis 0-39 PHYSICIAN INTERPRETATION: Mild atherosclerotic disease of the distal common and internal carotid arteries bilaterally without evidence of a hemodynamically significant lesion in either carotid system. cc: MD Tian Izquierdo MD
== END 2016-09-28 18:25 | disposition home health service (06) ==
LOC: ED 15:55 → SUATTDRO 18:55 → 4N 18:55
PROVIDERS: ATTEND Internal Medicine

== ENCOUNTER 2016-10-23 04:21 | Inpatient (IN) ==
[2016-10-23 04:44] LABS: MANUAL DIFF NEEDED? NO
[2016-10-23 04:48] LABS: BASO% 0.3 % (0.0-0.8); EOS# 0.31 X1000 (0.0-0.7); EOS% 3.2 % (0.0-10.0); HEMATOCRIT 37.6 % (37.0-47.0); HEMOGLOBIN 13.1 g/dL (12.0-16.0); LYMPH% 16.4 % (20.5-51.1); MCH 29.5 PG (27-31); MCHC 34.8 g/dL (33-37); MCV 84.7 FL (81-99); MONO# 0.91 X1000 (0.11-0.59); MONO% 9.3 % (1.7-9.3); MPV 10.9 FL (7.4-10.4); NEUT% 70.8 % (42.2-75.2); PLT 250 X1000 (130-400); RBC 4.44 XMIL (4.2-5.4)
[2016-10-23 05:10] LABS: ALBUMIN 4.5 g/dL (3.5-5.0); CALCIUM 10.6 mg/dL (8.8-10.2); POTASSIUM 3.9 mmol/L (3.5-5.1); TOTAL BILIRUBIN 3.21 mg/dL (0.20-1.00); TOTAL PROTEIN 7.7 g/dL (6.3-8.3)
--- NOTE | 2016-10-23 05:17 | EKG Report ---
Test Performed on : 10/23/2016 04:32:47 AM Test Reason : pressure in upper abd/ elderly woman. Blood Pressure : / mmHG Vent. Rate : 060 BPM Atrial Rate : 060 BPM P-R Int : 182 ms QRS Dur : 112 ms QT Int : 424 ms P-R-T Axes : 031 -28 065 degrees QTc Int : 424 ms Normal sinus rhythm. Left ventricular hypertrophy with repolarization abnormality Inferior infarct (cited on or before 30-SEP-2016) Anterior infarct , age undetermined Abnormal ECG When compared with ECG of 30-SEP-2016 13:06, No significant change was found Unconfirmed Result
--- NOTE | 2016-10-23 05:20 | PROVIDER DOCUMENTATION ---
HPI-Abdominal Pain/GI Problem - General Chief Complaint: Abdominal Pain Stated Complaint: ABD PAIN Time Seen by Provider: 10/23/16 04:48 Source: patient, family Allergies/Adverse Reactions: Patient Allergies Allergy/AdvReac Type Severity Reaction Status Date / Time ether [Ether] Allergy Unknown Verified 10/23/16 04:52 sulfamethoxazole Allergy RASH Verified 10/23/16 04:52 [From Bactrim] trimethoprim [From Bactrim] Allergy RASH Verified 10/23/16 04:52 morphine AdvReac AMS Verified 10/23/16 04:52 tramadol AdvReac ITCHING Verified 10/23/16 04:52 Home Medications: Home Medication List Medication Instructions Recorded Confirmed Last Taken Type Lutein [Natural Lutein] 20 mg PO DAILY 09/11/13 10/23/16 10/21/16 History Vitamin E 400 unit PO DAILY 09/11/13 10/23/16 10/21/16 History Multivitamin with Minerals 1 each PO DAILY 10/02/14 10/23/16 10/21/16 History [Multiple Vitamin] Carvedilol [Coreg] 12.5 mg PO BID #60 tablet 09/28/16 10/23/16 10/21/16 Rx Hydralazine [Apresoline] 25 mg PO TID #90 tablet 09/28/16 10/23/16 10/21/16 Rx Biotin 5,000 mcg PO BID 09/30/16 10/23/16 10/21/16 History Meloxicam [Mobic] 7.5 mg PO DAILY 09/30/16 10/23/16 10/22/16 History Ciprofloxacin [Cipro] 250 mg PO BID 10/23/16 10/23/16 10/22/16 History Olmesartan/Hydrochlorothiazide 1 each PO DAILY 10/23/16 10/23/16 10/22/16 11:00 History [Benicar Hct 40-25 mg Tablet] - History of Present Illness-ABD Nature of Presenting Problems: 80yo WFunderwent lap vania by Dr Emmanuel about two years ago without apparent complication. Several months later she developed obstructive jaundice secondary to stones in the CBD.. Abdominal Pain Onset Location: reports: epigastric Pain Radiation: reports: back Quality of Pain: reports: sharp Severity in ED: reports: moderate Onset/Duration: reports: 2 days ago Timing: reports: intermittent Activities at Onset: reports: none Modifying Factors: improves with: nothing Associated Symptoms: reports: constipation, loss of appetite, nausea, vomiting Last BM: unsure Dark Stools Present?: reports: none noticed Rectal Bleeding: reports: none Emesis Description: reports: none Bruising or Bleeding Gums?: No Similar Symptoms Previously?: No Recently seen or treated by another doctor?: Yes Review of Systems - Adult - REVIEW OF SYSTEMS - ADULT Constitutional: reports: no symptoms reported Eyes: reports: no symptoms reported Ears, Nose, Mouth & Throat: reports: no symptoms reported Cardiovascular: reports: no symptoms reported Respiratory: reports: no symptoms reported Gastrointestinal: reports: see HPI, abdominal pain, constipation, nausea, poor appetite, vomiting Genitourinary: reports: no symptoms reported Musculoskeletal: reports: no symptoms reported Integumentary: reports: no symptoms reported Neurological: reports: no symptoms reported Psychiatric: reports: no symptoms reported Endocrine: reports: no symptoms reported Hematologic/Lymphatic: reports: no symptoms reported Allergic/Immunologic: reports: no symptoms reported All Other Systems: Reviewed and Negative Past History - Adult - PAST MEDICAL HISTORY-ADULT Review of Records: reports: Old Records Reviewed, Nursing Assessment Review, Medications Reviewed, Social history reviewed & non-contributory. Major Childhood Illnesses: reports: denies history Cardiovascular: reports: HTN, hyperlipidemia Respiratory: reports: sleep apnea Gastrointestinal: reports: cholelithiasis, other (diverticulitis) Musculoskeletal: reports: arthritis - PRIOR SURGERIES/PROCEDURES Surgical/Procedure History: reports: appendectomy, cholecystectomy (in may), hysterectomy, orthopedic (extremity) (shoulder), joint replacement (LTKA, bilateral LUPE), back/neck - IMMUNIZATION STATUS Childhood Immunizations: See Nurse Assessment Flu Vaccine: See Nurse Assessment Physical Exam-General - PHYSICAL EXAM-ADULT Initial Vital Signs Reviewed: Yes - CONSTITUTIONAL General Appearance: appears well, alert, mild distress - EYES Eyes: PERRL/EOMI, pink conjunctivae - HEAD, EARS, NOSE, MOUTH & THROAT HENMT: normocephalic/atraumatic, moist mucous membranes, normal ENT inspection - NECK Neck: non-tender, full range of motion, supple - RESPIRATORY Respiratory: chest non-tender, lungs clear, normal breath sounds - CARDIOVASCULAR Cardiovascular: normal peripheral pulses, regular rate, rhythm, no edema, no gallop, no JVD, no murmur - GASTROINTESTINAL (ABDOMEN) Abdominal Exam: normal bowel sounds, soft, no organomegaly, tenderness - LYMPHATIC Lymphatic: no adenopathy - MUSCULOSKELETAL Back Exam: normal inspection Extremity: normal range of motion Peripheral Pulses: radial (R): 3+, radial (L): 3+ - SKIN Integumentary: normal color, normal turgor, warm/dry - NEUROLOGIC Neurologic: grossly normal - PSYCHIATRIC Psych/Mental Status: normal mood/affect Progress - PLAN OF CARE/RESULTS Progress/Plan/Lab Results: Vital Signs - 8 hr 10/23/16 04:27 Temperature 98.8 F Pulse Rate 67 Respiratory Rate 14 Blood Pressure 164/63 O2 Sat by Pulse Oximetry 98 Laboratory Results - last 24 hr 10/23/16 10/23/16 10/23/16 04:40 04:40 04:40 WBC 9.77 RBC 4.44 Hgb 13.1 Hct 37.6 MCV 84.7 MCH 29.5 MCHC 34.8 RDW Std Deviation 12.5 Plt Count 250 MPV 10.9 H Immature Gran % (Auto) 0.0 Neut % (Auto) 70.8 Lymph % (Auto) 16.4 L [place] % (Auto) 9.3 Eos % (Auto) 3.2 Baso % (Auto) 0.3 Immature Gran # (Auto) 0.00 Neut # (Auto) 6.92 H Lymph # (Auto) 1.60 [place] # (Auto) 0.91 H Eos # (Auto) 0.31 Baso # (Auto) 0.03 Sodium 125 L Potassium 3.9 Chloride 83 L Carbon Dioxide 28 Anion Gap 14 BUN 13 Creatinine 0.9 Estimated GFR/1.73 m2 60 BUN/Creatinine Ratio 14 Glucose 131 H Calculated Osmolality 253 Calcium 10.6 H Total Bilirubin 3.21 H AST 461 H ALT 391 H Alkaline Phosphatase 614 H Creatine Kinase 82 Troponin T Total Protein 7.7 Albumin 4.5 Globulin 3.2 Albumin/Globulin Ratio 1.4 Amylase 38 Lipase 53 10/23/16 04:40 WBC RBC Hgb Hct MCV MCH MCHC RDW Std Deviation Plt Count MPV Immature Gran % (Auto) Neut % (Auto) Lymph % (Auto) [place] % (Auto) Eos % (Auto) Baso % (Auto) Immature Gran # (Auto) Neut # (Auto) Lymph # (Auto) [place] # (Auto) Eos # (Auto) Baso # (Auto) Sodium Potassium Chloride Carbon Dioxide Anion Gap BUN Creatinine Estimated GFR/1.73 m2 BUN/Creatinine Ratio Glucose Calculated Osmolality Calcium Total Bilirubin AST ALT Alkaline Phosphatase Creatine Kinase Troponin T < 0.010 Total Protein Albumin Globulin Albumin/Globulin Ratio Amylase Lipase Orders Category Date Time Status Saline Loc DIRECTED Care 10/23/16 04:37 Active NPO Diet 10/23/16 04:37 Active AMYLASE [CHEM] Stat Lab 10/23/16 04:40 Completed CBC WITH ELECTRONIC DIFF [HEME] Stat Lab 10/23/16 04:40 Completed CK PROFILE [SP CHEM] Stat Lab 10/23/16 04:40 Completed COMPREHENSIVE METABOLIC PANEL [CHEM] Stat Lab 10/23/16 04:40 Completed LIPASE [CHEM] Stat Lab 10/23/16 04:40 Completed TROPONIN T Stat Lab 10/23/16 04:40 Completed URINALYSIS W/POSS RFLX CULT-1 [URINALYSIS] Stat Lab 10/23/16 04:37 Uncollected EKG [EKG] Stat Ther 10/23/16 04:29 Ordered Result Diagrams: 10/23/16 04:40 10/23/16 04:40 - CONSULTS/PCP/HOSPITALIST Notification #1 *Consult/PCP/Hospitalist*: Dr Khan Time Discussed: 05:00 Consult Disposition: Admit Departure - Departure Date of Disposition Decision: 10/23/16 Time of Disposition Decision: 05:38 DIAGNOSIS: Gall stones, common bile duct Disposition: ADMITTED INPATIENT 09 Certified Medical Emergency: Emergent Condition: Fair Referrals and Follow-Ups: Jeffry Santacruz MD [Primary Care Provider] - - Critical Care Note This patient required my direct & personal management of CC.: No
[2016-10-23] MEDS ORDERED: DILAUDID IV PRN (05:26)
[2016-10-23 05:41] LABS: URINE MICRO REVIEW NEEDED? NO; URINE SOURCE CLEAN CATCH
[2016-10-23 05:45] LABS: BILIRUBIN URINE SMALL (NEGATIVE); BLOOD URINE NEGATIVE (NEGATIVE); COLOR YELLOW; GLUCOSE URINE NEGATIVE (NEGATIVE); LEUKOCYTES URINE TRACE (NEGATIVE); NITRITE URINE NEGATIVE (NEGATIVE); PROTEIN URINE TRACE mg/dL (NEGATIVE); SP GRAVITY URINE 1.014; TURBIDITY URINE CLEAR (CLEAR); UR EPITHELIAL CELLS <10 /HPF (<10); URINE BACTERIA NEGATIVE /HPF; URINE CULTURE NEEDED? YES; URINE RBC <10 /HPF (<10); URINE WBC <10 /HPF (<10); UROBILINOGEN URINE NORMAL (NORMAL)
[2016-10-23] MEDS ORDERED: ZOFRAN IV PRN (07:08)
--- NOTE | 2016-10-23 08:04 | HISTORY AND PHYSICAL ---
PRIMARY CARE PROVIDER: Juan Manuel Kincaid MD ROVING CARRIER: Jeffry Santacruz MD CHIEF COMPLAINT: Abdominal pain. HISTORY OF PRESENT ILLNESS: Ms. Chou is an 80-year-old, female with a past medical history of hypertension, dyslipidemia, sleep apnea, gastroesophageal reflux disease, and previous multiple stones in the common bile duct even after cholecystectomy. She has also had multiple ERCPs with stent placement and removal of stones. The patient was just recently admitted on 09/24/2016 and discharged September 28. She was treated for abdominal pain suspected to be a common bile duct stone. Though this was resolved and she was to follow up with Gastroenterology. The patient states that yesterday, she began having epigastric pain that was sharp and pressure in nature. She reports that it is constant, though the pain does intensify at times. She reports the pain is similar to her pain when she previously has had common bile duct stones. She denies any nausea, vomiting. She reports 1 episode of diarrhea approximately 2 days ago and has not had a bowel movement since. She denied any hematochezia or melena. The patient does state that she has had decreased solid food intake over the past days or so due to her abdominal pain. She denies any fever body aches chills. She also denies any headache, dizziness , chest pain, shortness of breath, dysuria or urinary frequency or any pain, numbness or tingling in the extremities. Upon evaluation in the ER, the patient was found to be tender in her epigastric area. Also, her liver function tests are elevated as well. At this time, we will admit the patient for further treatment and evaluation of her possible common bile duct stones and we will consult Dr. Santacruz with Gastroenterology. REVIEW OF SYSTEMS: A 12-point review of systems was conducted with the patient and all were negative except for pertinent positives mentioned above in the HPI. PAST MEDICAL HISTORY: 1. Hypertension. 2. Dyslipidemia. 3. Sleep apnea. 4. Diverticulitis. 5. Previous history of multiple common bile duct stone with multiple ERCPs with stent placements and stone removal. 6. Spinal stenosis. PAST SURGICAL HISTORY: 1. Bilateral hip replacement. 2. Total left knee replacement. 3. Cholecystectomy. 4. Hysterectomy. SOCIAL HISTORY: Patient denies any past or present alcohol, tobacco or illicit drug use. FAMILY HISTORY: Positive for her mother having a history of diabetes mellitus and hypertension. Her father has a history of heart disease and diabetes mellitus and she has 1 sister that has a history of heart disease who has had cardiac stent placement. ALLERGIES: Patient reports allergies to ether, Bactrim, morphine and tramadol. HOME MEDICATIONS: Hydralazine 25 mg 1 tablet 3 times a day, carvedilol 12.5 mg p.o. b.i.d., ciprofloxacin 250 mg p.o. b.i.d., multivitamin 1 tablets daily, biotin 5000 mcg 1 tablet 2 times daily, vitamin E 400 international unit 1 tablets daily, lutein 20 mg p.o. daily , MiraLAX 17 g p.o. daily as needed, Prilosec 2 mg 1 tablet p.o. daily, Benicar 40-25 mg tablet 1 p.o. daily. DIAGNOSTIC DATA/ LABORATORY RESULTS: White blood cell count is 9.7, hemoglobin 13.1, hematocrit 37.6, platelet count is 250,000. Sodium 125, potassium 3.9, chloride 83, bicarbonate 28, BUN 13, creatinine 0.9, glucose 131, calcium 10.6, total bilirubin 3.21, AST 461, ALT 391, alkaline phosphatase is 614. CK 82, troponin less than 0.01. Amylase 38, lipase 53. Urinalysis was obtained via clean catch, was positive for trace protein, small bilirubin and trace leukocytes; it was otherwise within normal limits. Pending diagnostic studies at this time are blood culture, urine cultures and ultrasound abdomen complete. PHYSICAL EXAMINATION: VITAL SIGNS: Temperature is 98 degrees, heart rate 63, respirations 14, blood pressure 145/57, oxygen saturation is 95% on room air. GENERAL: Ms. Chou is a pleasant 80-year-old female who is resting comfortably in the ER stretcher. She was in no acute no acute distress. She was awake, alert able to answer all questions appropriately. HEENT: Head is atraumatic, normocephalic. Pupils are equal, round, reactive to light, were 3 mm bilaterally and brisk. Sclerae are white. No lesions or jaundice noted. Oral mucosa is moist. Oropharynx is clear. NECK: Supple. Trachea midline. No carotid bruits noted upon auscultation bilaterally. No JVD noted. CARDIOVASCULAR: Normal S1, S2. No murmurs, gallops, or rubs appreciated with a regular rate and rhythm. PULMONARY: Patient has symmetrical chest expansion bilaterally. Lung sounds were clear to auscultation in bilateral full nash. ABDOMEN: Soft, nondistended. The patient did report tenderness in the epigastric region upon palpation. Though, no rebound tenderness noted. No CVA tenderness noted upon palpation either. Bowel sounds were present in all 4 quadrants and normoactive. EXTREMITIES: No cyanosis, clubbing, or edema noted. Pulse, motor and sensory were intact in all extremities. Pedal pulses 3+ bilaterally. Capillary refill was less than 3. INTEGUMENTARY: The patient's skin was pink, warm, dry and intact. NEUROLOGICAL: Patient is alert and oriented x4. Cranial nerves 2-12 are grossly intact. ASSESSMENT AND PLAN: 1. Recurrent common bile duct stones. For further evaluation of this, we have placed an order for an abdominal ultrasound, as well as we have placed a consult with Dr. Santacruz and we will await his evaluation and further recommendations. The patient does have elevation of her liver function tests. We will continue to monitor this closely as well. 2. Abdominal pain. This is likely related to her common bile duct stone. We will treat the patient with Dilaudid 0.5 mg IV q.3 hours p.r.n. as needed. 3. Hypertension. We will continue the patient's hydralazine and coreg and we will continue to monitor. 4. Gastroesophageal reflux disease. For this, as well as treatment for gastrointestinal prophylaxis, we will place the patient on Protonix for mg IV q.24 hours. The patient will be placed on the medical floor with telemetry. She will have vital signs q.6 hours. We will do strict intake and output. Deep vein thrombosis prophylaxis was provided with sequential compression devices. She will be NPO at this time until evaluated by Gastroenterology. We will do gentle fluid resuscitation with normal saline at 75 mL/h. Further orders and recommendations pending hospital course, diagnostic studies and physician evaluation. Dictated by XIAO Logan for Ankush Hernandez MD cc: Ankush Hernandez MD [facility]
--- NOTE | 2016-10-23 08:32 | Diag Imaging Result Doc PS360 ---
EXAM: US ABDOMEN-COMPLETE HISTORY: recurrent CBD stones TECHNIQUE: Transabdominal COMMENT: The pancreatic head and body are normal in appearance. The aorta and inferior vena cava are normal where there are visible. There is antegrade flow in the portal vein. The gallbladder surgically absent. The common bile duct measures 1.2 cm which may be physiologic following cholecystectomy, however this was only 6 mm on the previous examination of 09/25/2016. The spleen is not enlarged. The liver is slightly hyperechoic. The kidneys are without evidence of hydronephrosis or mass although there is a 12 mm cyst in the left kidney. There has been no significant change in the kidneys cyst 09/26/2016. IMPRESSION: Increasing diameter of the common bile duct. The possibility of distal common bile duct stones, as suggested by the CT of 10/16/2016 cannot be excluded. Electronically signed by Brian Corrales 10/23/2016 8:29 AM
[2016-10-23] MEDS: NS 1,000 ML IV SCH ×2 (10:41)
--- NOTE | 2016-10-23 12:33 | CONSULTATION ---
DATE OF CONSULTATION: 10/23/2016 REASON FOR REFERRAL: Elevated liver function tests. HISTORY OF PRESENT ILLNESS: This is an 80-year-old, white female, who reports to the ER with abdominal pain. We have been following her for elevated LFTs. She has a history of common bile duct stones with multiple ERCPs and stent placements. We have been following her in the office. At the time, her liver function tests had improved at her last office visit last week. We were going to repeat her liver function tests next week, but patient became symptomatic again and had to come into the hospital. She reports increasing abdominal pain. It comes and goes. She did have an episode of diarrhea several days ago. She denied blood in the stool or black stools. She has had a poor appetite lately. On evaluation, her liver function tests, have gone back up. We had done a CT of the abdomen on 10/16/2016 that showed possible adenitis, history of cholecystectomy, fatty liver and diverticulosis and prominent atherosclerosis. At that time, there was no definite common bile duct stones seen. On admission to the hospital, she had an abdominal ultrasound that showed increasing diameter of the common bile duct. The possibility of distal common bile duct stone could not be excluded. PAST MEDICAL HISTORY: Hypertension, dyslipidemia, sleep apnea, history of multiple common bile duct stones with multiple ERCPs and stent placements and removals, spinal stenosis. PAST SURGICAL HISTORY: Bilateral hip replacement, total left knee replacement, cholecystectomy, hysterectomy, ERCPs. ALLERGIES: Ether, causing unknown reaction. Bactrim causes rash. Morphine altered mental status. Tramadol itching. MEDICATIONS: Vitamin E 400 units daily, multivitamin daily, Mobic 7.5 mg daily , lutein 20 mg daily, Apresoline 25 mg 3 times a day, Cipro 250 mg twice daily, Coreg 12.5 mg twice daily, biotin 5000 mcg twice daily, Benicar 1 daily. SOCIAL HISTORY: Denies alcohol use. She is a . She has 6 children. No tobacco use reported. FAMILY HISTORY: Mother had diabetes and hypertension. Father had heart disease and diabetes. REVIEW OF SYSTEMS: Per HPI. PHYSICAL EXAMINATION: Vital Signs: Temperature 97.9 degrees, heart rate 66, respirations 18, blood pressure 150/61. General: Patient is awake, alert, in no acute distress. HEENT: Atraumatic. Pupils equal, round, reactive to light. Sclerae nonicteric. Respiratory: Lung sounds essentially clear bilaterally. Cardiovascular: Regular rate and rhythm. Abdomen: Soft, nondistended, mild tenderness with palpation. Extremities: No lower extremity edema noted. Pedal pulses positive bilaterally. Neurological: Cranial nerves 2-12 grossly intact. Patient is awake, alert, oriented to person, place, and time. DIAGNOSTIC RESULTS/LABORATORY: Hematology: White count 9.77, hemoglobin 13.1, hematocrit 37.6, MCV 84.7, platelets 250,000. Chemistry: Sodium 125, potassium 3.9, chloride 83 , CO2 28, BUN 13, creatinine 0.9, glucose 131, total bilirubin 3.21, AST 461, ALT 391, alkaline phosphatase 614, amylase 38, lipase 53. Abdominal ultrasound showing increased diameter of the common bile duct. The possibility of distal common bile duct stone could not be excluded. PLAN: Continue supportive care. Continue symptomatic treatment for abdominal pain. We will plan to proceed with an ERCP when able. I have discussed with OR scheduling and have been unable to coordinate a procedure time today. We will plan for ERCP on Wednesday. Further plans will be made according to findings. I have discussed the procedure with the patient and her family along with benefits and risk and they wish to proceed. I have discussed this case with Dr. Santacruz. Thank you for this consultation. Dictated by XIAO Gutierrez for Jeffry Santacruz MD cc: XIAO Witt MD [facility]
[2016-10-23] MEDS: PROTONIX IV SCH ×2 (12:45→12:52)
[2016-10-23] MEDS: APRESOLINE PO SCH ×3 (12:46→16:56)
[2016-10-23] MEDS: BENICAR PO SCH ×2 (12:47→12:51)
[2016-10-23] MEDS: COREG PO SCH ×3 (12:48→20:41)
[2016-10-23] MEDS: HYDROCHLOROTHIAZIDE PO SCH ×2 (12:48→12:52)
[2016-10-23] MEDS: SODIUM CHLORIDE 0.9% INJ SCH (12:52)
[2016-10-24] MEDS: BENADRYL PO PRN ×5 (00:22→20:57)
[2016-10-24] MEDS: NS 1,000 ML IV SCH (05:42)
[2016-10-24 07:39] LABS: MANUAL DIFF NEEDED? NO
[2016-10-24 07:54] LABS: BASO% 0.1 % (0.0-0.8); EOS# 0.31 X1000 (0.0-0.7); EOS% 4.1 % (0.0-10.0); HEMATOCRIT 31.1 % (37.0-47.0); HEMOGLOBIN 10.4 g/dL (12.0-16.0); LYMPH# 1.21 X1000 (1.2-3.4); MCH 28.5 PG (27-31); MCHC 33.4 g/dL (33-37); MCV 85.2 FL (81-99); MONO# 0.84 X1000 (0.11-0.59); MONO% 11.1 % (1.7-9.3); MPV 10.6 FL (7.4-10.4); NEUT% 68.7 % (42.2-75.2); PLT 187 X1000 (130-400); RBC 3.65 XMIL (4.2-5.4)
[2016-10-24 08:26] LABS: ALBUMIN 3.4 g/dL (3.5-5.0); CALCIUM 8.8 mg/dL (8.8-10.2); POTASSIUM 3.3 mmol/L (3.5-5.1); TOTAL BILIRUBIN 1.97 mg/dL (0.20-1.00); TOTAL PROTEIN 5.9 g/dL (6.3-8.3)
[2016-10-24] MEDS: COREG PO SCH ×2 (09:46→20:55)
[2016-10-24] MEDS: APRESOLINE PO SCH ×3 (09:46→16:49)
[2016-10-24] MEDS: BENICAR PO SCH (09:46)
[2016-10-24] MEDS: HYDROCHLOROTHIAZIDE PO SCH (09:46)
[2016-10-24] MEDS: SODIUM CHLORIDE 0.9% INJ SCH (09:49)
[2016-10-24] MEDS: PROTONIX IV SCH (09:49)
[2016-10-24 10:30] LABS: CALCIUM 8.6 mg/dL (8.8-10.2); POTASSIUM 3.2 mmol/L (3.5-5.1)
[2016-10-24] MEDS ORDERED: SAMSCA PO ONE (12:15)
[2016-10-24] MEDS ORDERED: DULCOLAX PR ONE (12:17)
[2016-10-24] MEDS ORDERED: KLOR-CON PO ONE (13:45)
--- NOTE | 2016-10-24 14:47 | PROGRESS NOTE ---
DATE: 10/24/2016 SUBJECTIVE: This patient feels better. She is still complaining of mild right upper quadrant discomfort. She denies nausea, vomiting, diarrhea, constipation. OBJECTIVE: Vital Signs: Temperature 98.2 degrees, pulse 60, respiratory rate 18, blood pressure 143/54, oxygen saturation 96 on room air. HEENT: Head normocephalic. No trauma. PERRLA. Neck: Supple. No JVD. No masses. Central trachea. Chest: Clear to auscultation. No wheezing. No rales. Cardiovascular: RRR. Abdomen: Soft, mild discomfort to palpation at the level of the right upper quadrant. Extremities: No edema. No clubbing. No cyanosis. Neurological: The patient is alert, oriented x3. No focal deficits. LABORATORY: WBC 7.5, hemoglobin 10.4, hematocrit 31.1, platelets 187,000. Sodium 123, potassium 3.2, chloride 85, bicarbonate 24, BUN 18, creatinine 1.7, glucose 147, calcium 8.6, AST 200, ALT 292, alkaline phosphatase 512, albumin 3.4. ASSESSMENT AND PLAN: 1. Recurrent common bile duct stones. For further evaluation this patient will have an ERCP done on Wednesday by Dr. Santacruz. For now, this patient is on a liquid diet. We will continue with the same management. 2. Abdominal pain likely related to #1. 3. Hypertension. Continue with the same management. Blood pressure is better controlled. 4. Hypokalemia. I will replace the potassium. 5. Hyponatremia. I will use Samsca for this patient x1, we will monitor the sodium tomorrow. 6. Gastroesophageal reflux disease. Continue with Protonix IV q.24 hours. 7. Constipation. I placed this patient on MiraLAX and also I want to provide a Dulcolax suppository. 8. Acute kidney injury. Continue with the same management. She is tolerating p.o. and the urine output has been acceptable. Likely this was related to dehydration. 9. Deep vein thrombosis prophylaxis. Continue with SCDs. cc: Fabian Main MD
[2016-10-25] MEDS: PROTONIX IV SCH (05:40)
[2016-10-25] MEDS: BENADRYL PO PRN (05:43)
[2016-10-25 06:51] LABS: MANUAL DIFF NEEDED? NO
[2016-10-25 07:02] LABS: BASO% 0.2 % (0.0-0.8); HEMATOCRIT 35.6 % (37.0-47.0); IMM GRAN# 0.02 X1000 (0.0-0.04); IMM GRAN% 0.2 % (0.0-0.5); LYMPH# 1.12 X1000 (1.2-3.4); LYMPH% 11.4 % (20.5-51.1); MCH 29.1 PG (27-31); MCHC 33.7 g/dL (33-37); MCV 86.4 FL (81-99); MONO# 0.79 X1000 (0.11-0.59); MPV 10.5 FL (7.4-10.4); NEUT% 77.2 % (42.2-75.2); PLT 225 X1000 (130-400); RBC 4.12 XMIL (4.2-5.4)
[2016-10-25 07:33] LABS: ALBUMIN 3.7 g/dL (3.5-5.0); CALCIUM 9.2 mg/dL (8.8-10.2); POTASSIUM 3.9 mmol/L (3.5-5.1); TOTAL BILIRUBIN 1.17 mg/dL (0.20-1.00); TOTAL PROTEIN 6.4 g/dL (6.3-8.3)
[2016-10-25] MEDS: HYDROCHLOROTHIAZIDE PO SCH (08:15)
[2016-10-25] MEDS: BENICAR PO SCH (08:15)
[2016-10-25] MEDS: MIRALAX PO SCH (08:15)
[2016-10-25] MEDS: COREG PO SCH ×2 (08:15→20:16)
[2016-10-25] MEDS: APRESOLINE PO SCH ×3 (08:15→17:35)
--- NOTE | 2016-10-25 13:45 | PROGRESS NOTE ---
DATE: 10/25/2016 SUBJECTIVE: This patient feels better. She is still complaining of mild right upper quadrant pain. She denies nausea, vomiting, diarrhea. She has been constipated, but yesterday she had a bowel movement. We will continue with the same management. OBJECTIVE: Vital Signs: Temperature 98.6 degrees, pulse 57, respiratory rate 20, blood pressure 158/53, oxygen saturation 96 on room air. HEENT: Head normocephalic. No trauma. PERRLA. Neck: Supple. No JVD. No masses. Central trachea. Chest: Clear to auscultation. No wheezing. No rales. Abdomen: Soft, mild discomfort to palpation at the level of the right upper quadrant. Extremities: No edema. No clubbing. No cyanosis. Neurological: The patient is alert and oriented x3. No focal deficits. LABORATORY STUDIES: WBC 9.8, hemoglobin 12, hematocrit 35.6, platelets 225,000. Sodium 133, potassium 3.9, chloride 94, bicarbonate 26, BUN 16, creatinine 1.2, glucose 95, calcium 9.2. AST 85, ALT 197, alkaline phosphatase 468. Calcium 9.2. ASSESSMENT AND PLAN: 1. Recurrent common bile duct stones. This patient is scheduled to have an ERCP done on tomorrow by Dr. Santacruz. For now, this patient is on a liquid diet. We will continue with the same management. 2. Abdominal pain, likely related to #1. 3. Hypertension. I increased the dose of hydralazine from 25 t.i.d. to 50 t.i.d. We will monitor the blood pressure. 4. Hypokalemia, resolved. 5. Hyponatremia. This is looking better after treating this patient with Samsca x1. Sodium today is 133. 6. Gastroesophageal reflux disease. Continue with Protonix IV q.24 hours. 7. Constipation. She had a bowel movement yesterday. Continue with MiraLAX. 8. Acute kidney injury. This is much better. Continue with the same management for now. 9. Deep venous thrombosis prophylaxis provided by sequential compression devices. cc: Fabian Main MD
[2016-10-26] MEDS: PROTONIX IV SCH (06:06)
[2016-10-26] MEDS: APRESOLINE PO SCH ×2 (06:07→14:39)
[2016-10-26 07:00] LABS: MANUAL DIFF NEEDED? NO
[2016-10-26 07:03] LABS: BASO% 0.3 % (0.0-0.8); EOS# 0.46 X1000 (0.0-0.7); EOS% 5.1 % (0.0-10.0); HEMATOCRIT 36.4 % (37.0-47.0); LYMPH# 1.41 X1000 (1.2-3.4); LYMPH% 15.6 % (20.5-51.1); MCH 29.2 PG (27-31); MCV 88.6 FL (81-99); MONO# 0.68 X1000 (0.11-0.59); MONO% 7.5 % (1.7-9.3); MPV 10.4 FL (7.4-10.4); NEUT% 71.5 % (42.2-75.2); PLT 254 X1000 (130-400); RBC 4.11 XMIL (4.2-5.4)
[2016-10-26 07:26] LABS: ALBUMIN 3.4 g/dL (3.5-5.0); CALCIUM 9.7 mg/dL (8.8-10.2); POTASSIUM 4.1 mmol/L (3.5-5.1); TOTAL BILIRUBIN 0.85 mg/dL (0.20-1.00); TOTAL PROTEIN 6.4 g/dL (6.3-8.3)
[2016-10-26] MEDS: BENICAR PO SCH (08:50)
[2016-10-26] MEDS: MIRALAX PO SCH (08:50)
[2016-10-26] MEDS: COREG PO SCH ×2 (08:51→20:53)
[2016-10-26] MEDS: HYDROCHLOROTHIAZIDE PO SCH (08:51)
--- NOTE | 2016-10-26 13:50 | PROGRESS NOTE ---
DATE: 10/26/2016 SUBJECTIVE: This patient feels better. She has no specific complaints at this moment, just mild upper quadrant abdominal pain, no acute events overnight. OBJECTIVE: Vital Signs: Temperature 97.5 degrees, pulse 55, respiratory rate 18, blood pressure 154/62. HEENT: Head normocephalic. No trauma. PERRLA. Neck: Supple. No JVD. No masses. Central trachea. Chest: Clear to auscultation. No wheezing. No rales. Abdomen: Soft, mild discomfort to palpation at the level of the right upper quadrant. Extremities: No edema. No clubbing. No cyanosis. Neurological: The patient is alert and oriented x3. No focal deficits. LABORATORY: WBC 9, hemoglobin 12, hematocrit 36.4, platelets 254,000. Sodium 135, potassium 4.1, chloride 96, bicarbonate 26. BUN 14, creatinine 1, glucose 109, calcium 9.7, albumin 3.4. ASSESSMENT AND PLAN: 1. Recurrent common bile duct stones. This patient is scheduled to have an ERCP done today, this patient is nothing per oral. Continue to monitor. 2. Abdominal pain likely related to #1. 3. Hypertension. We will continue to monitor. Continue with the same management. 4. Hypokalemia, resolved. 5. Hyponatremia, resolved. 6. Gastroesophageal reflux disease. Continue with Protonix IV q.24 hours. 7. Constipation, continue with the same management. 8. Acute kidney injury. This is much better. Continue with the same treatment for now. 9. Deep venous thrombosis prophylaxis provided by [employer]. cc: Fabian Main MD
[2016-10-26] MEDS ORDERED: DIPRIVAN 1% 500 MG/50 ML BOTTLE ONE (13:56)
--- NOTE | 2016-10-26 14:05 | Diag Imaging Result Doc PS360 ---
ERCP-BILIARY AND PANCREATIC - 10/26/2016 INDICATION: elevated lfts, hx cbd stones TECHNIQUE: The exam was performed by the patient's endoscopist. Four images were obtained. COMPARISON: CT from 10/16/2016 FINDINGS: There is diffuse dilation of the intra and extrahepatic biliary collecting system. There is apparent shouldering at the distal most common bile duct suggesting an endoluminal obstruction. This likely represents a stone. IMPRESSION: Moderate biliary dilation with a possible distal obstructing stone. Electronically signed by Isaias Cunningham 10/26/2016 2:03 PM
[2016-10-26] MEDS ORDERED: LR 1,000 ML ONE (14:41)
--- NOTE | 2016-10-27 04:54 | OPERATIVE NOTE ---
PROCEDURE DATE: 10/26/2016 PROCEDURE PERFORMED: ERCP, sphincterotomy, and stone extraction. SCOPE USED: Olympus duodenoscope. MEDICATION USED: MAC as per Anesthesia. HISTORY: This 80-year-old, white female who has history of choledocholithiasis has been admitted to the [facility] few times with a history of ascending cholangitis and possible retained stone in the common bile duct. ERCP was done for therapeutic purposes. DESCRIPTION OF PROCEDURE: Informed consent was obtained from the patient. Procedure, risks, benefits, alternatives were explained in layman's terms. She understood. All the pertinent questions were answered. Patient was brought to the endoscopy unit and was premedicated as per Anesthesia. After adequate sedation, while she was lying in left lateral position, the duodenoscope was introduced into the posterior pharynx and advanced manually into the esophagus. Through the esophagus, it was advanced into the stomach. The stomach was insufflated. Pylorus identified. Scope was then passed through the pylorus, into the duodenal bulb, and then 2nd part of the duodenum where the major papilla was identified which had partial sphincterotomy done. I used a sphincterotome and cannulated the common bile duct preferentially and contrast injected. Cholangiogram obtained which revealed some filling defect in the distal common bile duct. At this point, I went ahead and proceeded with extending the sphincterotomy and made it more adequate. After that, I used a 4 wire basket and swiped the common bile duct multiple times. Then I used an extraction balloon and swiped the common bile duct multiple times. Some debris came out with the extraction balloon. After that, I used a balloon to get occlusion cholangiogram which did not reveal any further filling defects. The contrast was flowing out of the common bile duct very nicely. The scope was then removed. Patient tolerated the procedure well. No complications noted. Patient was then transferred to the recovery area in a stable condition. IMPRESSION: Retained stone in common bile duct. Sphincterotomy extended and stone removed. RECOMMENDATION: At this point, I would continue to observe her in the hospital for another day or two. Once she is stable enough to be discharged, she will be followed up in the office. In the meantime, she will have her blood pressure monitored and managed. cc: Jeffry Santacruz MD
[2016-10-27] MEDS: PROTONIX IV SCH (05:40)
[2016-10-27 07:03] LABS: MANUAL DIFF NEEDED? NO
[2016-10-27 07:14] LABS: BASO% 0.5 % (0.0-0.8); EOS# 0.42 X1000 (0.0-0.7); EOS% 5.4 % (0.0-10.0); HEMATOCRIT 35.5 % (37.0-47.0); HEMOGLOBIN 11.5 g/dL (12.0-16.0); LYMPH# 1.39 X1000 (1.2-3.4); LYMPH% 17.9 % (20.5-51.1); MCH 29.1 PG (27-31); MCHC 32.4 g/dL (33-37); MCV 89.9 FL (81-99); MONO# 0.65 X1000 (0.11-0.59); MONO% 8.4 % (1.7-9.3); NEUT% 67.8 % (42.2-75.2); PLT 261 X1000 (130-400); RBC 3.95 XMIL (4.2-5.4)
[2016-10-27 07:29] LABS: AGAP 13; ALBUMIN 3.6 g/dL (3.5-5.0); ALKALINE PHOSPHATASE 346 U/L (32-104); BUN 12 mg/dL (8-22); CALCIUM 8.8 mg/dL (8.8-10.2); CHLORIDE 97 mmol/L (98-107); COSMO 273; GOT 35 U/L (10-30); GPT 109 U/L (10-36); POTASSIUM 3.7 mmol/L (3.5-5.1); SODIUM 137 mmol/L (136-145); TCO2 27 mmol/L (25-35); TOTAL PROTEIN 6.3 g/dL (6.3-8.3)
[2016-10-27] MEDS ORDERED: NORVASC PO SCH (09:00)
[2016-10-27] MEDS: MIRALAX PO SCH (09:06)
[2016-10-27] MEDS: COREG PO SCH (09:07)
[2016-10-27] MEDS: APRESOLINE PO SCH ×3 (09:07→13:43)
[2016-10-27] MEDS: BENICAR PO SCH (09:07)
[2016-10-27] MEDS: HYDROCHLOROTHIAZIDE PO SCH (09:07)
[2016-10-27 09:22] VITALS: BP 147/59
--- NOTE | 2016-10-28 07:16 | DISCHARGE SUMMARY ---
ADMISSION DATE: 10/23/2016 DISCHARGE DATE: 10/27/2016 CONSULTATIONS: Dr. Santacruz with GI. PERTINENT PROCEDURES: ERCP with sphincterectomy and stone extraction performed by Dr. Santacruz. DISCHARGE DIAGNOSES: 1. Recurrent common bile duct stone. The patient is status post ERCP with sphincterectomy and stone extraction by Dr. Santacruz. She was stable and will follow up in his office. 2. Abdominal pain secondary to #1 improved. 3. Hypertension. Continue home medications. 4. Hypokalemia resolved. 5. Hyponatremia resolved. 6. GERD. Continue PPI. 7. Constipation resolved. 8. Acute kidney injury improved. HOSPITAL COURSE: Ms. Chou is an 80-year-old female with a past medical history of hypertension, dyslipidemia, sleep apnea and GERD with previous multiple stones in the common bile duct even after cholecystectomy. She has had multiple ERCP's with stent placement and removal of stones who recently had been admitted on 09/24/2016 and discharged on 09/28 treated for abdominal pain suspected to be a common bile duct stone though it was resolved. She was to follow up with GI. The patient states that the day before her admission she began having epigastric pain that was sharp, pressure in nature. She reports it was constant though the pain does intensify at times. She reported pain similar to her pain that she previously had with her common bile duct stones. She denies any nausea or vomiting, reported one episode of diarrhea approximately 2 days prior to her admission. She had not had a bowel movement since. She denied any hematochezia or melena. The patient states that she has decreased her solid food intake over the past day or so secondary to her abdominal pain. She was found to be tender in her epigastric area. Her liver function tests were elevated as well. The patient was admitted for recurrent common bile duct stones with a GI consult. She was given antiemetics as well as pain management. She underwent an ERCP, sphincterectomy and stone extraction by Dr. Santacruz. She has been tolerating a clear liquid diet. No nausea or vomiting. She is appropriate for discharge home today to follow up with Dr. Santacruz in his office. VITAL SIGNS: Temperature is 98 degrees, heart rate 58, respirations 18, blood pressure 147/59, O2 is 96% on room air. DISCHARGE DIET: Clear liquids and advanced to full liquids and then as tolerated. DISCHARGE MEDICATIONS: 1. Norvasc 5 mg p.o. b.i.d. 2. Biotin 5000 mcg p.o. b.i.d. 3. Coreg 12.5 mg p.o. b.i.d. 4. Apresoline 50 mg p.o. t.i.d. 5. [place] 5/325 1 each p.o. q.6 hours p.r.n. 6. Lutein 20 mg p.o. daily. 7. Mobic 7.5 mg p.o. daily. 8. Multivitamin 1 each p.o. daily. 9. Benicar 1 each p.o. daily. 10. Vitamin E 400 units p.o. daily. FOLLOWUP: The patient is being discharged home with [facility]. She will follow up with Dr. Santacruz as instructed. The patient can return to the ED for any worsening of symptoms. DISCHARGE TIME: 30 minutes. Dictated by XIAO Sharp for Fabian Main MD cc: Fabian Main MD MTDD
== END 2016-10-27 16:52 | disposition home health service (06) ==
LOC: ED 04:21 → SUATTDRO 06:37 → 3N 06:37
PROVIDERS: ATTEND Internal Medicine
PROC: EN.ERCP (2016-10-26 12:28)